=== PATIENT | male | born 2000 | race Caucasian/White ===

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

== ENCOUNTER 2024-08-29 23:40 | Emergency (ER) | payer MEDICAID, OTHER ==
[~2024-08-29] VITALS: Ht 182.9 cm; Wt 74.0 kg
[2024-08-29 23:42] VITALS: O2SAT 98
[2024-08-30 00:11] VITALS: TEMP 36.9
[2024-08-30 00:47] LABS: BASOPHILS % 0.2 % (0.0-2.0); EOSINOPHILS % 2.6 % (0.0-5.0); HEMATOCRIT. 40.7 % (42.0-52.0); HEMOGLOBIN. 14.1 g/dL (14.0-18.0); LYMPHOCYTES % 30.2 % (20.0-50.0); MEAN PLATELET VOLUME 7.3 fl (7.4-10.4); MONOCYTES % 8.1 % (2.0-8.0); NEUTROPHILS % 58.9 % (40.0-76.0); PLATELET 285 x1000/uL (130-400); RED BLOOD CELL COUNT 4.62 mill/uL (4.7-6.1); RED CELL DISTRIBUTION WIDTH 13.4 % (11.6-14.6)
[2024-08-30] MEDS: TETANUS, DIPHTHERIA, PERTUSSIS VAC/PF 0.5ML (>10YR OLD) IM ONE (00:54)
[2024-08-30 01:01] LABS: CREATININE 0.9 mg/dL (0.6-1.3); TROPONIN I HIGH SENSITIVITY < 4 ng/L (3.0-53); UREA NITROGEN BLOOD 10 mg/dL (9-23)
[2024-08-30 01:02] LABS: ETHANOL BLOOD < 10 mg/dL (<10)
[2024-08-30 02:26] VITALS: BP 117/64; PULSE 57; RESP 16; O2SAT 100
== END 2024-08-30 02:35 | disposition home or self-care (01) ==
LOC: ER 23:40
DX: R55 Syncope and collapse (principal)
CPT/HCPCS: 36415; 71045; 80048; 80320; 84484; 85025; 90471; 90715; 99285; G0480